=== PATIENT | female | born 1985 | race Two or more races ===

== ENCOUNTER 2022-04-06 18:13 | Emergency (ER) | payer SELFPAY ==
[~2022-04-06] VITALS: Ht 170.2 cm; Wt 70.0 kg
[2022-04-06 18:20] VITALS: BP 118/49
== END 2022-04-06 19:56 | disposition left against medical advice (07) ==
LOC: ER 18:13
DX: Z53.21 Procedure and treatment not carried out due to patient leaving prior to being seen by health care provider (principal)